=== PATIENT | male | born 1945 | race Caucasian/White ===

== ENCOUNTER 2016-11-10 20:16 | Inpatient (IN) | payer OTHER ==
[~2016-11-10] VITALS: Ht 182.8 cm; Wt 123.6 kg
[2016-11-10] VITALS (10 sets, daily range): BP systolic 102–139; BP diastolic 0–84
--- NOTE | ~2016-11-10 | ST ---
[place], [place] EXERCISE STRESS TEST REPORT [id number] UNIT #: [id number] ROOM: [facility] DOCTOR: LEANN BUTLER MD BIRTHDATE: [birth year] DOS: 11/12/2016 REFERRING PHYSICIAN: Dr. Florentino. INDICATION: Chest pressure and atrial fibrillation. The patient underwent standard protocol Lexiscan stress EKG. The patient's baseline EKG showed normal sinus rhythm, nonspecific ST-T wave changes. The patient's baseline heart rate was 65 with a blood pressure 148/80. The patient's peak heart rate of 98 with a blood pressure 153/78. The patient had no chest pain, no ischemic changes. The patient had rare PVCs, is only arrhythmia. SUMMARY OF FINDINGS: Unremarkable Lexiscan stress EKG. Please see separate report for perfusion scan imaging report. LEANN BUTLER MD CM:STRESS:EXERCISE STRESS TEST REPORT [id number] LEANN BUTLER MD
--- NOTE | ~2016-11-10 | CON ---
[place], [place] REPORT OF CONSULTATION NAME: GANESH SNYDER UNIT #: [id number] ROOM: [facility] DOCTOR: ARTUR ALVARENGAMAURICIO BIRTHDATE: [birth year] DOS: 11/11/2016 REASON FOR CONSULTATION: Atrial fibrillation. CLINICAL HISTORY: The patient is a 71-year-old patient with history of hypertension and dyslipidemia. At present to the Emergency Room for dizziness and palpitations which has been going on for a couple of days. He also felt like he is having some chest discomfort at this time, but it is more like his heart palpitations, no syncope. This has been going on now for several days. Usually, they resolve on its own, but this time, symptoms did not resolve and he came to the Emergency Room and he was found to be tachycardic with heart rates around 190 and given 2 doses of adenosine and his heart rate significantly improved. He was started on intravenous Cardizem and admitted to the hospital and Cardiology was consulted for further recommendations regarding his tachy-arrhythmias. He denied any exertional chest pain or palpitations. No syncope, no fever or chills, no cough, no hemoptysis. No nausea, vomiting, diarrhea. No blurred vision or double vision, no headaches. No musculoskeletal symptoms. No hematuria or dysuria. REVIEW OF SYSTEMS: Review of the 10 systems negative except as mentioned above. PAST MEDICAL HISTORY: 1. Hypertension. 2. Diabetes type 2. 3. Morbid obesity. 4. Sleep apnea. 5. Dyslipidemia. 6. Anxiety. 7. COPD. PAST SURGICAL HISTORY: 1. History of back surgery. 2. History of cardiac catheterization 15 years ago. SOCIAL HISTORY: The patient quit smoking a while ago. Does not drink alcohol, does not use illicit drugs. FAMILY HISTORY: Father from metastatic cancer. Mother had heart disease. ALLERGIES: No known drug allergies. HOME MEDICATIONS: Reviewed. PHYSICAL EXAMINATION: VITAL SIGNS: Blood pressure 138/82, pulse 68, respiratory rate 16. GENERAL: Alert, comfortable, in no acute distress. HEENT: Pupils are round and equal. No jaundice. Tongue was moist and pharynx clear. NECK: Supple, no distended neck veins. No carotid bruits. Thyroid not palpable. [place], [place] REPORT OF CONSULTATION NAME: GANESH SNYDER UNIT #: [id number] ROOM: 519 DOCTOR: MAURICIO SIDDIQUI MD BIRTHDATE: [birth year] CHEST: Symmetrical, nontender. LUNGS: Clear to auscultation bilaterally. HEART: Regular rhythm. No S3. Grade 1/6 systolic murmur at the right sternal border. ABDOMEN: Obese, nontender. Difficult to assess due to morbid obesity. EXTREMITIES: Showed trace edema bilaterally. Distal pulses are palpable. SKIN: Warm and dry. No cyanosis, no clubbing. NEUROLOGIC: The patient is alert, oriented. No focal neurologic deficit. PSYCHIATRIC: No joint tenderness or swelling. RECTAL: Deferred. GENITOURINARY: Deferred. REVIEW OF THE DIAGNOSTIC TESTS: EKG shows tachycardia with right bundle-branch block appears to be atrial fibrillation. His labs and rhythm strips reviewed. IMPRESSION: 1. Paroxysmal atrial fibrillation with rapid ventricular rate, currently in sinus rhythm. 2. Borderline elevation of troponin, possibly due to tachycardia and chronic kidney disease. 3. Atypical chest pain due to tachycardia. 4. Hypertension. 5. Diabetes type 2. 6. Chronic kidney disease. 7. Dyslipidemia. 8. Sleep apnea. 9. Morbid obesity. RECOMMENDATIONS: 1. He denies any chest pain or shortness of breath. He is feeling much better. 2. Discontinue IV Cardizem and put him on p.o. Cardizem. 3. Check 2D echo for LV function and valvular function. 4. Risk and benefits of the anticoagulation discussed and he is agreeable to take Eliquis, which I will start tomorrow based on his echo and stress test findings. 5. Risk factor modification for diet, exercise discussed. 6. Further recommendations based on his hospital course, stress test and 2D echo. [place], [place] REPORT OF CONSULTATION NAME: GANESH SNYDER UNIT #: [id number] ROOM: 519 DOCTOR: MAURICIO SIDDIQUI MD BIRTHDATE: [birth year] MAURICIO SIDDIQUI MD CM:CONSTR:REPORT OF CONSULTATION 1649 12/13/16 1000 interface
--- NOTE | ~2016-11-10 | WRIGHTHP ---
[place], [place] PATIENT HISTORY AND PHYSICAL EXAM [id number] UNIT #: [id number] ROOM: 519 DOCTOR: JACKELINE GOLDSMITH DO BIRTHDATE: [birth year] DOS: 11/11/2016 PRIMARY CARE PHYSICIAN: Dr. Clemens. The patient was seen and evaluated with the resident on 11/11/2016. Please see the resident's note for further details. ASSESSMENT: 1. Atrial fibrillation with a rapid ventricular response. This is now resolved and converted back to sinus rhythm. 2. Paroxysmal atrial fibrillation. This is newly recognized. 3. Mild leukocytosis. 4. Mild elevation of troponin. 5. Near syncope secondary to the atrial fibrillation. 6. Acute renal failure, this is now resolved. 7. Hypertension. 8. Hyperlipidemia. 9. Diabetes mellitus type 2. 10. Chronic obstructive pulmonary disease. 11. Asthma. 12. Obstructive sleep apnea. 13. Ex-smoker, he quit many years ago. 14. Anxiety. 15. Depression. PLAN: The patient will be kept again overnight. We will continue to watch him on the deep fat cook fry. Cardiology has been consulted. They have ordered a stress test to be done tomorrow. JACKELINE GOLDSMITH DO CM:HISPHYS:PATIENT HISTORY AND PHYSICAL EXAMINATION [id number] JACKELINE GOLDSMITH DO 11/11/16 1432 interface
[~2016-11-10 20:16] MED LIST: FLUOXETINE10 MG PO; HUMALOG100 U/ML SC; LANTUS100 U/ML SC; LISINOPRIL-HYDR1 TA1 PO; METFORMIN500 MG PO; SINGULAIR10 MG PO; THEOPHYLLINE PO; VITAMIN D50000 I3 PO
[2016-11-10] MEDS ORDERED: ATORVASTATIN CA40 M1 PO (20:29)
[2016-11-10] MEDS ORDERED: THEOPHYLLINE300 M2 PO (20:30)
[2016-11-10] MEDS ORDERED: PROZAC40 M1 PO (20:31)
[2016-11-10] MEDS ORDERED: TRULICITY0.75 MG/0. SC (20:32)
[2016-11-10 20:40] LABS: BASO # 0.1 10*3/uL (0.0-0.1); BASO % 0.5 % (0.0-1.0); EOS # 0.2 10*3/uL (0.0-0.4); EOS % 1.4 % (1.0-4.0); HEMOGLOBIN 15.1 g/dl (14.0-18.0); IG # 0.1 10*3/uL (0.0-0.1); LYMPH # 3.1 10*3/uL (1.3-4.4); LYMPH % 24.1 % (27.0-41.0); MEAN CELL VOLUME 90.9 fl (80.0-94.0); MEAN CORPUSCULAR HGB 32.7 pg (27.0-31.0); MEAN PLATELET VOLUME 9.9 fl (9.6-12.3); MONO # 1.2 10*3/uL (0.1-1.0); MONO % 9.2 % (3.0-9.0); NEUT # 8.1 10*3/uL (2.3-7.9); NEUT % 64.2 % (47.0-73.0); PLATELET COUNT AUTOMATED 208 10*3/uL (130-400); RED BLOOD COUNT 4.62 10*6/uL (4.50-5.90); WHITE BLOOD COUNT 12.6 10*3/uL (4.8-10.8)
[2016-11-10 20:51] LABS: PROTHROMBIN TIME 11.1 SECONDS (9.0-12.4)
[2016-11-10 20:58] LABS: ALBUMIN 3.2 gm/dl (3.1-4.5); BILIRUBIN, TOTAL 0.5 mg/dl (0.2-1.0); MAGNESIUM 1.3 mg/dL (1.5-2.1); POTASSIUM 4.1 mmol/L (3.5-5.1); TOTAL PROTEIN 6.6 gm/dL (6.4-8.2)
[2016-11-10 21:02] LABS: THEOPHYLLINE 6.2 ug/ml (10-20); TROPONIN I 0.05 ng/ml (<0.045)
[2016-11-11] VITALS (7 sets, daily range): BP systolic 109–154; BP diastolic 50–76
[2016-11-11 00:01] LABS: CKMB 1.4 ng/ml (0.5-3.6)
[2016-11-11 00:05] LABS: TROPONIN I 0.115 ng/ml (<0.045)
[2016-11-11 06:56] LABS: BASO # 0.1 10*3/uL (0.0-0.1); BASO % 0.5 % (0.0-1.0); EOS # 0.3 10*3/uL (0.0-0.4); HEMATOCRIT 40.5 % (42.0-52.0); HEMOGLOBIN 14.4 g/dl (14.0-18.0); IG # 0.1 10*3/uL (0.0-0.1); LYMPH # 3.5 10*3/uL (1.3-4.4); LYMPH % 36.8 % (27.0-41.0); MEAN CELL VOLUME 92.5 fl (80.0-94.0); MEAN CORPUSCULAR HGB 32.9 pg (27.0-31.0); MEAN CORPUSCULAR HGB CONC 35.6 g/dl (33.0-37.0); MEAN PLATELET VOLUME 10.1 fl (9.6-12.3); MONO # 0.8 10*3/uL (0.1-1.0); MONO % 8.6 % (3.0-9.0); NEUT # 4.8 10*3/uL (2.3-7.9); NEUT % 50.4 % (47.0-73.0); PLATELET COUNT AUTOMATED 186 10*3/uL (130-400); RED BLOOD COUNT 4.38 10*6/uL (4.50-5.90); RED CELL DISTRI WIDTH 11.9 % (0-14.5); WHITE BLOOD COUNT 9.5 10*3/uL (4.8-10.8)
[2016-11-11 07:19] LABS: PROTHROMBIN TIME 10.8 SECONDS (9.0-12.4)
[2016-11-11 07:36] LABS: ALBUMIN 3.1 gm/dl (3.1-4.5); BILIRUBIN, TOTAL 0.5 mg/dl (0.2-1.0); BUN 15 mg/dl (7-24); CARBON DIOXIDE 27 mmol/L (21-32); CHLORIDE 108 mmol/L (98-107); CHOLESTEROL 132 mg/dL (<200); EST GLOM FILT AFRICAN AMERICAN > 60 ml/min; GLUCOSE 136 mg/dL (65-99); MAGNESIUM 1.6 mg/dL (1.5-2.1); POTASSIUM 3.7 mmol/L (3.5-5.1); SGOT/AST 11 IU/L (3-35); SGPT/ALT 22 U/L (12-78); SODIUM 143 mmol/L (136-145); TOTAL PROTEIN 6.3 gm/dL (6.4-8.2); TRIGLYCERIDES 148 mg/dl (<150); VLDL CHOLESTEROL 30 mg/dL (6-40)
[2016-11-11 07:40] LABS: HEMOGLOBIN A1c 6.7 % (4.8-5.6)
[2016-11-11 07:43] LABS: ALKALINE PHOSPHATASE 90 U/L (45-117); FREE T4 1.12 ng/dl (0.76-1.46); HDL CHOLESTEROL 36 mg/dl (40-60); LDL CHOLESTEROL 66 mg/dL (9-159); THYROID STIM HORMONE (HS) 0.661 uIU/ml (0.358-4.75)
[2016-11-11 09:26] LABS: FOLIC ACID 16.23 ng/mL (>5.38); VITAMIN D, 25-HYDROXY 28.6 ng/mL (30-100)
[2016-11-12] VITALS: BP 145/60
[2016-11-12 06:07] LABS: BASO # 0.1 10*3/uL (0.0-0.1); BASO % 0.6 % (0.0-1.0); EOS # 0.3 10*3/uL (0.0-0.4); EOS % 3.5 % (1.0-4.0); HEMATOCRIT 41.7 % (42.0-52.0); HEMOGLOBIN 14.8 g/dl (14.0-18.0); IG # 0.1 10*3/uL (0.0-0.1); LYMPH # 3.2 10*3/uL (1.3-4.4); LYMPH % 35.3 % (27.0-41.0); MEAN CELL VOLUME 92.3 fl (80.0-94.0); MEAN CORPUSCULAR HGB 32.7 pg (27.0-31.0); MEAN CORPUSCULAR HGB CONC 35.5 g/dl (33.0-37.0); MEAN PLATELET VOLUME 9.8 fl (9.6-12.3); MONO # 0.8 10*3/uL (0.1-1.0); MONO % 8.5 % (3.0-9.0); NEUT # 4.6 10*3/uL (2.3-7.9); NEUT % 51.3 % (47.0-73.0); PLATELET COUNT AUTOMATED 200 10*3/uL (130-400); RED BLOOD COUNT 4.52 10*6/uL (4.50-5.90); RED CELL DISTRI WIDTH 11.9 % (0-14.5); WHITE BLOOD COUNT 8.9 10*3/uL (4.8-10.8)
[2016-11-12 06:26] LABS: ALBUMIN 3.3 gm/dl (3.1-4.5); ALKALINE PHOSPHATASE 97 U/L (45-117); BILIRUBIN, TOTAL 0.6 mg/dl (0.2-1.0); BUN 11 mg/dl (7-24); CARBON DIOXIDE 29 mmol/L (21-32); CHLORIDE 105 mmol/L (98-107); EST GLOM FILT AFRICAN AMERICAN > 60 ml/min; GLUCOSE 95 mg/dL (65-99); MAGNESIUM 1.8 mg/dL (1.5-2.1); POTASSIUM 4.1 mmol/L (3.5-5.1); SGOT/AST 15 IU/L (3-35); SGPT/ALT 24 U/L (12-78); SODIUM 141 mmol/L (136-145); TOTAL PROTEIN 6.9 gm/dL (6.4-8.2)
[2016-11-12 08:00] VITALS: BP 144/77
[2016-11-12 12:00] VITALS: BP 155/77
[2016-11-12 16:00] VITALS: BP 147/79
[2016-11-12] MEDS ORDERED: FLUTICASON0.05 MG/AC NAS (16:34)
[2016-11-12] MEDS ORDERED: TOPROL XL50 M1 PO (16:34)
[2016-11-12] MEDS ORDERED: ELIQUIS5 M1 PO (16:36)
== END 2016-11-12 17:37 | disposition home or self-care (01) | DRG 308 ==
LOC: ED 20:16 → 5E 21:35 → EDHOLD 21:35 → 5E 22:04
PROVIDERS: Emergency Medicine; Hospitalist; Nurse Practitioner Family
DX: I48.0 Paroxysmal atrial fibrillation (principal); N17.0 Acute kidney failure with tubular necrosis; D72.829 Elevated white blood cell count, unspecified; E11.65 Type 2 diabetes mellitus with hyperglycemia; J44.9 Chronic obstructive pulmonary disease, unspecified; E66.01 Morbid (severe) obesity due to excess calories; E78.5 Hyperlipidemia, unspecified; I12.9 Hypertensive chronic kidney disease with stage 1 through stage 4 chronic kidney disease, or unspecified chronic kidney disease; F41.1 Generalized anxiety disorder; G47.33 Obstructive sleep apnea (adult) (pediatric); N18.9 Chronic kidney disease, unspecified; E11.22 Type 2 diabetes mellitus with diabetic chronic kidney disease; F32.9 Major depressive disorder, single episode, unspecified; Z79.4 Long term (current) use of insulin; Z80.9 Family history of malignant neoplasm, unspecified; Z83.3 Family history of diabetes mellitus; Z82.49 Family history of ischemic heart disease and other diseases of the circulatory system; Z87.891 Personal history of nicotine dependence; Z79.899 Other long term (current) drug therapy; Z68.36 Body mass index [BMI] 36.0-36.9, adult; Z79.84 Long term (current) use of oral hypoglycemic drugs

== ENCOUNTER → 2021-02-07 | Outpatient (CLI) | payer OTHER ==
[~2021-02-07] MED LIST changes: +ATORVASTATIN CA40 M1 PO; +ELIQUIS5 M1 PO; +FLUTICASON0.05 MG/AC NAS; +PROZAC40 M1 PO; +THEOPHYLLINE300 M2 PO; +TOPROL XL50 M1 PO; +TRULICITY0.75 MG/0. SC
== END | disposition home or self-care (01) ==
LOC: COVID19 15:15
PROVIDERS: ATTEND Family Medicine
DX: U07.1 COVID-19 (principal)

== ENCOUNTER 2021-05-29 16:07 | Emergency (ER) | payer OTHER ==
[~2021-05-29] VITALS: Ht 182.8 cm; Wt 119.3 kg
[2021-05-29 20:05] LABS: BASO % 0.2 % (0.0-1.0); EOS # 0.1 10*3/uL (0.0-0.4); EOS % 0.3 % (1.0-4.0); HEMATOCRIT 47.5 % (42.0-52.0); LYMPH % 11.1 % (27.0-41.0); MEAN CELL VOLUME 90.3 fl (80.0-94.0); MEAN CORPUSCULAR HGB 32.1 pg (27.0-31.0); MEAN CORPUSCULAR HGB CONC 35.6 g/dl (33.0-37.0); MEAN PLATELET VOLUME 8.8 fl (9.6-12.3); MONO % 5.7 % (3.0-9.0); NEUT # 14.6 10*3/uL (2.3-7.9); NEUT % 82.2 % (47.0-73.0); PLATELET COUNT AUTOMATED 204 10*3/uL (130-400); RED BLOOD COUNT 5.26 10*6/uL (4.50-5.90); RED CELL DISTRI WIDTH 12.9 % (0-14.5); WHITE BLOOD COUNT 17.8 10*3/uL (4.8-10.8)
[2021-05-29 20:20] LABS: ALBUMIN 3.6 gm/dl (3.1-4.5); ALKALINE PHOSPHATASE 106 U/L (45-117); BUN 11 mg/dl (7-24); CHLORIDE 101 mmol/L (98-107); CREATININE 0.97 mg/dL (0.70-1.30); SGOT/AST 20 IU/L (3-35); SGPT/ALT 31 U/L (12-78); SODIUM 138 mmol/L (136-145)
== END 2021-05-29 22:38 | disposition home or self-care (01) ==
LOC: ED 16:07
PROVIDERS: Nurse Practitioner Family
DX: R07.89 Other chest pain (principal); Z20.822 Contact with and (suspected) exposure to COVID-19; R51.9 Headache, unspecified; Z79.899 Other long term (current) drug therapy; Z87.891 Personal history of nicotine dependence

== ENCOUNTER 2021-08-29 19:15 | Emergency (ER) | payer OTHER ==
[~2021-08-29] VITALS: Ht 182.8 cm; Wt 115.2 kg
[2021-08-29 19:20] VITALS: BP 178/86
[2021-08-29 20:07] LABS: BASO % 0.2 % (0.0-1.0); EOS % 0.1 % (1.0-4.0); HEMATOCRIT 44.2 % (42.0-52.0); LYMPH # 0.8 10*3/uL (1.3-4.4); LYMPH % 5.5 % (27.0-41.0); MEAN CELL VOLUME 89.3 fl (80.0-94.0); MEAN CORPUSCULAR HGB 32.3 pg (27.0-31.0); MEAN CORPUSCULAR HGB CONC 36.2 g/dl (33.0-37.0); MEAN PLATELET VOLUME 9.2 fl (9.6-12.3); MONO # 1.1 10*3/uL (0.1-1.0); MONO % 7.3 % (3.0-9.0); NEUT # 12.4 10*3/uL (2.3-7.9); NEUT % 86.3 % (47.0-73.0); PLATELET COUNT AUTOMATED 242 10*3/uL (130-400); RED BLOOD COUNT 4.95 10*6/uL (4.50-5.90); RED CELL DISTRI WIDTH 12.8 % (0-14.5); WHITE BLOOD COUNT 14.4 10*3/uL (4.8-10.8)
[2021-08-29 20:23] LABS: ALKALINE PHOSPHATASE 245 U/L (45-117); BUN 9 mg/dl (7-24); CHLORIDE 95 mmol/L (98-107); CREATININE 1.11 mg/dL (0.70-1.30); POTASSIUM 4.1 mmol/L (3.5-5.1); SGOT/AST 584 IU/L (3-35); SGPT/ALT 464 U/L (12-78); SODIUM 132 mmol/L (136-145); TOTAL PROTEIN 8.4 gm/dL (6.4-8.2)
[2021-08-29 20:53] LABS: BILIRUBIN 1+ (Negative); BLOOD Negative (Negative); CLARITY Turbid (Clear); COLOR Dark Yellow (Yellow); GLUCOSE 3+ (Negative); KETONE 1+ (Negative); LEUKO ESTERASE Negative (Negative); NITRITE Negative (Negative); PH 7.5 (4.5-8.0); SPECIFIC GRAVITY >= 1.030 (1.001-1.030)
[2021-08-29 21:01] LABS: BACTERIA 4+
[2021-08-29 21:02] LABS: EPITHELIAL CELLS 0-2; WBC 0-2 wbc/hpf (0-5)
[2021-08-30 01:42] LABS: INTERNATIONAL NORM RATIO 1.1 (2.0-3.5)
[2021-08-30 05:12] VITALS: BP 134/74
== END 2021-08-30 05:21 | disposition short-term general hospital (02) ==
LOC: ED 19:15 → EDHOLD 08-30 01:23 → ED 08-30 01:23
PROVIDERS: Emergency Medicine
DX: A41.9 Sepsis, unspecified organism (principal); E87.1 Hypo-osmolality and hyponatremia; E80.6 Other disorders of bilirubin metabolism; D72.829 Elevated white blood cell count, unspecified; R74.01 Elevation of levels of liver transaminase levels; J44.9 Chronic obstructive pulmonary disease, unspecified; E11.9 Type 2 diabetes mellitus without complications; I10 Essential (primary) hypertension; E78.5 Hyperlipidemia, unspecified; E66.9 Obesity, unspecified; Z79.899 Other long term (current) drug therapy; Z98.890 Other specified postprocedural states

== ENCOUNTER → 2023-08-29 | Outpatient (CLI) | payer OTHER | END | disposition home or self-care (01) | LOC: MRI 00:32 | PROVIDERS: ATTEND Psychiatry & Neurology Psychiatry | DX: G31.9 Degenerative disease of nervous system, unspecified (principal); F03.90 Unspecified dementia, unspecified severity, without behavioral disturbance, psychotic disturbance, mood disturbance, and anxiety ==

== ENCOUNTER 2023-11-26 21:43 | Emergency (ER) | payer MEDICARE ==
[~2023-11-26] VITALS: Ht 182.8 cm; Wt 127.0 kg
[2023-11-26] MEDS ORDERED: methylPREDNISolone sod succ 125 MG VIAL IM ONE (23:25)
[2023-11-26] MEDS ORDERED: METHOCARBAMOL 750 MG TAB PO ONE (23:25)
[2023-11-26] MEDS ORDERED: METHOCARBAMOL750 M1 PO (23:44)
[2023-11-26] MEDS ORDERED: PREDNISONE20 M1 PO (23:44)
== END 2023-11-27 00:24 | disposition home or self-care (01) ==
LOC: ED 21:43
DX: S39.012A Strain of muscle, fascia and tendon of lower back, initial encounter (principal); E11.9 Type 2 diabetes mellitus without complications; J44.9 Chronic obstructive pulmonary disease, unspecified; F41.9 Anxiety disorder, unspecified; Z95.5 Presence of coronary angioplasty implant and graft; Z98.890 Other specified postprocedural states; X50.0XXA Overexertion from strenuous movement or load, initial encounter; Y93.89 Activity, other specified; Y92.009 Unspecified place in unspecified non-institutional (private) residence as the place of occurrence of the external cause; Y99.8 Other external cause status

== ENCOUNTER 2024-06-24 16:28 | Emergency (ER) | payer OTHER ==
[~2024-06-24] VITALS: Wt 124.7 kg
[~2024-06-24 16:28] MED LIST changes: +METHOCARBAMOL750 M1 PO; +PREDNISONE20 M1 PO
[2024-06-24] MEDS ORDERED: methylPREDNISolone sod succ 125 MG VIAL IM ONE (18:55)
[2024-06-24] MEDS ORDERED: Acetaminophen/Hydrocodone 5 MG/325 MG TABLET PO ONE (18:55)
[2024-06-24] MEDS ORDERED: HYDROCODONE-AC1 EAC1 PO (21:31)
[2024-06-24] MEDS ORDERED: CYCLOBENZAPRINE5 M3 PO (21:31)
== END 2024-06-24 21:45 | disposition home or self-care (01) ==
LOC: ED 16:28
DX: S39.012A Strain of muscle, fascia and tendon of lower back, initial encounter (principal); I48.91 Unspecified atrial fibrillation; E11.9 Type 2 diabetes mellitus without complications; I10 Essential (primary) hypertension; E78.5 Hyperlipidemia, unspecified; K21.9 Gastro-esophageal reflux disease without esophagitis; Z79.899 Other long term (current) drug therapy; Z79.84 Long term (current) use of oral hypoglycemic drugs; Z79.4 Long term (current) use of insulin; Z98.890 Other specified postprocedural states; Z87.891 Personal history of nicotine dependence; X50.1XXA Overexertion from prolonged static or awkward postures, initial encounter; Y93.89 Activity, other specified; Y92.89 Other specified places as the place of occurrence of the external cause; Y99.8 Other external cause status

== ENCOUNTER → 2024-11-26 | Outpatient (CLI) | payer OTHER ==
[~2024-11-26] MED LIST changes: +CYCLOBENZAPRINE5 M3 PO; +HYDROCODONE-AC1 EAC1 PO
== END | disposition home or self-care (01) ==
LOC: RAD 15:56
PROVIDERS: ATTEND Family Medicine
DX: M19.041 Primary osteoarthritis, right hand (principal); M79.89 Other specified soft tissue disorders; M79.643 Pain in unspecified hand

== ENCOUNTER 2024-12-26 20:44 | Emergency (ER) | payer OTHER ==
[~2024-12-26] VITALS: Ht 182.8 cm; Wt 120.2 kg
[2024-12-26] MEDS ORDERED: METHOCARBAMOL 750 MG TAB PO ONE (21:40)
== END 2024-12-26 23:32 | disposition home or self-care (01) ==
LOC: ED 20:44
DX: S16.1XXA Strain of muscle, fascia and tendon at neck level, initial encounter (principal); R51.9 Headache, unspecified; Z79.899 Other long term (current) drug therapy; Z79.4 Long term (current) use of insulin; Z79.84 Long term (current) use of oral hypoglycemic drugs; Z98.890 Other specified postprocedural states; Z87.891 Personal history of nicotine dependence; X50.1XXA Overexertion from prolonged static or awkward postures, initial encounter; Y93.84 Activity, sleeping; Y92.098 Other place in other non-institutional residence as the place of occurrence of the external cause; Y99.8 Other external cause status

== ENCOUNTER 2025-01-31 21:03 | Emergency (ER) | payer OTHER ==
[~2025-01-31] VITALS: Ht 175.2 cm; Wt 117.5 kg
[2025-01-31] MEDS ORDERED: SODIUM CHLORIDE 0.9% 1,000 ML IV ONE (21:30)
[2025-01-31 22:09] LABS: BASO # 0.0 10*3/uL (0.0-0.1); BASO % 0.5 % (0.0-1.0); EOS # 0.1 10*3/uL (0.0-0.4); EOS % 1.5 % (1.0-4.0); MEAN CELL VOLUME 94.4 fl (80.0-94.0); MEAN CORPUSCULAR HGB 32.5 pg (27.0-31.0); MEAN PLATELET VOLUME 8.7 fl (9.6-12.3); MONO # 1.0 10*3/uL (0.1-1.0); MONO % 12.0 % (3.0-9.0); NEUT # 5.0 10*3/uL (2.3-7.9); NEUT % 59.6 % (47.0-73.0); NUCLEATED RED BLOOD CELL 0.0 % (0.0-0.0); NUCLEATED RED BLOOD CELL 0.0 10*3/uL (0.0-0.0); PLATELET COUNT AUTOMATED 205 10*3/uL (130-400); RED CELL DISTRI WIDTH 12.8 % (0-14.5)
[2025-01-31 22:26] LABS: BUN 12 mg/dl (9-23); SGPT/ALT 16 U/L (5-49)
== END 2025-01-31 23:38 | disposition home or self-care (01) ==
LOC: ED 21:03
DX: F41.9 Anxiety disorder, unspecified (principal); R55 Syncope and collapse; R51.9 Headache, unspecified; I48.91 Unspecified atrial fibrillation; J44.9 Chronic obstructive pulmonary disease, unspecified; E11.9 Type 2 diabetes mellitus without complications; I10 Essential (primary) hypertension; E78.5 Hyperlipidemia, unspecified; E66.9 Obesity, unspecified; Z79.899 Other long term (current) drug therapy; Z79.84 Long term (current) use of oral hypoglycemic drugs; Z79.4 Long term (current) use of insulin; Z68.30 Body mass index [BMI] 30.0-30.9, adult; Z98.890 Other specified postprocedural states; Z87.891 Personal history of nicotine dependence

== ENCOUNTER 2025-02-26 21:46 | Emergency (ER) | payer OTHER ==
[~2025-02-26] VITALS: Ht 182.9 cm; Wt 109.8 kg
[2025-02-26 22:09] LABS: BASO # 0.0 10*3/uL (0.0-0.1); BASO % 0.3 % (0.0-1.0); EOS # 0.2 10*3/uL (0.0-0.4); EOS % 1.4 % (1.0-4.0); MEAN CELL VOLUME 94.7 fl (80.0-94.0); MEAN CORPUSCULAR HGB 32.7 pg (27.0-31.0); MEAN PLATELET VOLUME 8.6 fl (9.6-12.3); MONO # 1.1 10*3/uL (0.1-1.0); MONO % 10.3 % (3.0-9.0); NEUT # 6.3 10*3/uL (2.3-7.9); NEUT % 58.3 % (47.0-73.0); NUCLEATED RED BLOOD CELL 0.0 % (0.0-0.0); NUCLEATED RED BLOOD CELL 0.0 10*3/uL (0.0-0.0); PLATELET COUNT AUTOMATED 272 10*3/uL (130-400); RED CELL DISTRI WIDTH 13.0 % (0-14.5)
[2025-02-26 22:22] LABS: ACT PARTIAL THROMBO TIME 32.6 SECONDS (20.0-32.1)
[2025-02-26 22:30] LABS: BUN 11 mg/dl (9-23)
[2025-02-27] MEDS ORDERED: MAGNESIUM 250 MG TAB PO ONE (00:25)
[2025-02-27] MEDS ORDERED: METHOCARBAMOL 750 MG TAB PO ONE (00:25)
[2025-02-27] MEDS ORDERED: METHOCARBAMOL750 M1 PO (00:30)
[2025-02-27] MEDS ORDERED: PREDNISONE20 M1 PO (00:30)
== END 2025-02-27 00:45 | disposition home or self-care (01) ==
LOC: ED 21:46
PROVIDERS: Internal Medicine
DX: S16.1XXA Strain of muscle, fascia and tendon at neck level, initial encounter (principal); S29.012A Strain of muscle and tendon of back wall of thorax, initial encounter; R07.81 Pleurodynia; Z79.4 Long term (current) use of insulin; Z79.84 Long term (current) use of oral hypoglycemic drugs; Z79.899 Other long term (current) drug therapy; Z87.891 Personal history of nicotine dependence; W18.2XXA Fall in (into) shower or empty bathtub, initial encounter; Y93.89 Activity, other specified; Y92.89 Other specified places as the place of occurrence of the external cause; Y99.8 Other external cause status

== ENCOUNTER 2025-04-10 15:57 | Inpatient (IN) | payer OTHER ==
[~2025-04-10] VITALS: Ht 182.9 cm; Wt 111.6 kg
[~2025-04-10 15:57] MED LIST changes: +ARTHRITIS PAIN150 G1 T; +DIVALPROEX SOD500 M1 PO; +DONEPEZIL HCL10 MG PO; +DRIZALMA SPRINK60 MG PO; +LANTUS100 UNIT/1 SC; +LISINOPRIL40 MG PO; +METFORMIN HCL750 M1 PO; +METOPROLOL SUC100 M1 PO; +PROPRANOLOL HCL20 MG PO; +RISPERIDONE1 MG PO; +TRAZODONE150 MG PO; +VENT7GM INH; +VIBRA-TAB100 MG PO; +VITAMIN D325 MCG PO
[2025-04-10 16:05] VITALS: BP 100/66
[2025-04-10] MEDS ORDERED: SODIUM CHLORIDE 0.9% 500 ML IV ONE (16:10)
[2025-04-10] MEDS ORDERED: DILTIAZEM HCL IN NACL,ISO-OSM 100 ML IV SCH (16:15)
[2025-04-10 16:25] LABS: BASO # 0.0 10*3/uL (0.0-0.1); BASO % 0.4 % (0.0-1.0); EOS # 0.2 10*3/uL (0.0-0.4); EOS % 1.6 % (1.0-4.0); MEAN CELL VOLUME 97.2 fl (80.0-94.0); MEAN CORPUSCULAR HGB 32.9 pg (27.0-31.0); MEAN PLATELET VOLUME 9.2 fl (9.6-12.3); MONO # 1.0 10*3/uL (0.1-1.0); MONO % 9.1 % (3.0-9.0); NEUT # 6.8 10*3/uL (2.3-7.9); NEUT % 64.7 % (47.0-73.0); NUCLEATED RED BLOOD CELL 0.0 % (0.0-0.0); NUCLEATED RED BLOOD CELL 0.0 10*3/uL (0.0-0.0); PLATELET COUNT AUTOMATED 301 10*3/uL (130-400); RED CELL DISTRI WIDTH 13.2 % (0-14.5)
[2025-04-10 16:37] VITALS: BP 123/72
[2025-04-10 16:52] LABS: CPK 33 U/L (34-171)
[2025-04-10 17:07] LABS: BUN 24 mg/dl (9-23)
[2025-04-10] MEDS ORDERED: MAGNESIUM SULFATE 50 ML IV ONE (17:20)
[2025-04-10 18:41] VITALS: BP 130/68
[2025-04-10] MEDS ORDERED: BISACODYL 5 MG TAB PO PRN (18:45)
[2025-04-10] MEDS ORDERED: ACETAMINOPHEN 325 MG TAB PO PRN (18:45)
[2025-04-10] MEDS ORDERED: BISACODYL 10 MG SUPP R PRN (18:45)
[2025-04-10] MEDS ORDERED: Acetaminophen/Hydrocodone 5 MG/325 MG TABLET PO PRN (18:45)
[2025-04-10] MEDS ORDERED: ACETAMINOPHEN 650 MG SUPP R PRN (18:45)
[2025-04-10] MEDS ORDERED: Ondansetron Hydrochloride 4 MG/2 ML VIAL IV PRN (18:45)
[2025-04-10] MEDS ORDERED: DEXTROSE 50% 25 GM/50 ML VIAL IV PRN (18:50)
[2025-04-10 19:04] LABS: BILIRUBIN Negative (Negative); BLOOD Negative (Negative); CLARITY Clear (Clear); COLOR Yellow (Yellow); KETONE Trace (Negative); LEUKO ESTERASE Negative (Negative); NITRITE Negative (Negative); PH 5.0 (4.5-8.0); SPECIFIC GRAVITY 1.020 (1.001-1.030); UROBILINOGEN 1.0 E.U./dl (0.0-1.0)
[2025-04-10 19:10] LABS: WBC 0-2 wbc/hpf (0-5)
[2025-04-10 19:11] LABS: BACTERIA TRACE; EPITHELIAL CELLS 0-2
[2025-04-10] MEDS ORDERED: FUROSEMIDE 40 MG/4 ML VIAL IV ONE (20:25)
[2025-04-10] MEDS ORDERED: ATIVAN0.5 MG PO (20:48)
[2025-04-10] MEDS ORDERED: LORazepam 0.5 MG TAB PO ONE (20:50)
[2025-04-10] MEDS ORDERED: INSULIN LISPRO 1 UNIT/0.01 ML SQ SCH (22:00)
[2025-04-11 00:30] VITALS: BP 129/60; BP 129/69
[2025-04-11 06:24] LABS: BASO # 0.1 10*3/uL (0.0-0.1); BASO % 0.6 % (0.0-1.0); EOS # 0.3 10*3/uL (0.0-0.4); EOS % 2.2 % (1.0-4.0); MEAN CELL VOLUME 94.9 fl (80.0-94.0); MEAN CORPUSCULAR HGB 32.6 pg (27.0-31.0); MEAN PLATELET VOLUME 9.2 fl (9.6-12.3); MONO # 1.2 10*3/uL (0.1-1.0); MONO % 9.8 % (3.0-9.0); NEUT # 6.5 10*3/uL (2.3-7.9); NEUT % 55.4 % (47.0-73.0); NUCLEATED RED BLOOD CELL 0.0 % (0.0-0.0); NUCLEATED RED BLOOD CELL 0.0 10*3/uL (0.0-0.0); PLATELET COUNT AUTOMATED 355 10*3/uL (130-400); RED CELL DISTRI WIDTH 13.1 % (0-14.5)
[2025-04-11 06:29] LABS: SGPT/ALT 49 U/L (5-49)
[2025-04-11 06:41] LABS: BUN 14 mg/dl (9-23)
[2025-04-11 08:00] VITALS: BP 130/91
[2025-04-11] MEDS ORDERED: DIGOXIN 125 MCG TAB PO ONE (09:00)
[2025-04-11] MEDS ORDERED: MAGNESIUM SULFATE 50 ML IV ONE (09:40)
[2025-04-11] MEDS ORDERED: POTASSIUM CHLORIDE 20 MEQ TAB PO ONE ×2 (09:40→11:45)
[2025-04-11] MEDS ORDERED: APIXABAN 5 MG TAB PO SCH (10:00)
[2025-04-11 12:00] VITALS: BP 137/68
[2025-04-11] MEDS ORDERED: DIGOXIN 125 MCG TAB PO SCH (15:00)
[2025-04-11 16:00] VITALS: BP 132/73
[2025-04-11 20:00] VITALS: BP 134/51
[2025-04-11] MEDS ORDERED: LORazepam 0.5 MG TAB PO PRN (21:20)
[2025-04-11 22:00] VITALS: BP 142/66
[2025-04-11] MEDS ORDERED: Insulin Glargine, Recombinan 1 UNIT/0.01 ML SC SCH (22:00)
[2025-04-11] MEDS ORDERED: risperiDONE 1 MG TAB PO SCH (22:00)
[2025-04-11] MEDS ORDERED: DIVALPROEX ER 250 MG TAB PO SCH (22:00)
[2025-04-12] VITALS (11 sets, daily range): BP systolic 106–153; BP diastolic 49–73
[2025-04-12] MEDS ORDERED: SODIUM CHLORIDE 0.9% 1,000 ML IV ONE (00:05)
[2025-04-12 01:13] LABS: BUN 15 mg/dl (9-23)
[2025-04-12] MEDS ORDERED: MAGNESIUM SULFATE 100 ML IV ONE (01:45)
[2025-04-12] MEDS ORDERED: FLUTICASONE PROPIONATE Nasal 16 Gm spray NAS SCH (10:00)
[2025-04-12] MEDS ORDERED: DONEPEZIL 10 MG TAB PO SCH (10:00)
[2025-04-12] MEDS ORDERED: Vitamin D 1,000 IU TAB (25 MCG) PO SCH (10:00)
[2025-04-12] MEDS ORDERED: Menthol/Zinc Oxide 4 GM THIN T PRN (11:20)
[2025-04-12] MEDS ORDERED: FOAM BANDAGE 1 EACH BANDAGE T ONE (12:23)
[2025-04-12] MEDS ORDERED: HEEL PROTECTOR DEVICE ONE (12:24)
[2025-04-12] MEDS ORDERED: CHAIR CUSHION DEVICE ONE (12:24)
[2025-04-12] MEDS ORDERED: DIGOXIN 125 MCG TAB PO SCH (14:00)
[2025-04-12] MEDS ORDERED: FOAM BANDAGE HEEL T ONE (15:20)
[2025-04-12] MEDS ORDERED: ATORVASTATIN CALCIUM 40 MG TABLET PO SCH (18:00)
[2025-04-12] MEDS ORDERED: Menthol/Zinc Oxide 4 GM THIN T SCH (22:00)
[2025-04-13] VITALS (11 sets, daily range): BP systolic 103–137; BP diastolic 45–65
[2025-04-13 06:09] LABS: BASO # 0.0 10*3/uL (0.0-0.1); BASO % 0.5 % (0.0-1.0); EOS # 0.3 10*3/uL (0.0-0.4); EOS % 3.3 % (1.0-4.0); MEAN CELL VOLUME 97.3 fl (80.0-94.0); MEAN CORPUSCULAR HGB 32.1 pg (27.0-31.0); MEAN PLATELET VOLUME 8.9 fl (9.6-12.3); MONO # 0.9 10*3/uL (0.1-1.0); MONO % 10.3 % (3.0-9.0); NEUT # 4.8 10*3/uL (2.3-7.9); NEUT % 58.7 % (47.0-73.0); NUCLEATED RED BLOOD CELL 0.0 % (0.0-0.0); NUCLEATED RED BLOOD CELL 0.0 10*3/uL (0.0-0.0); PLATELET COUNT AUTOMATED 311 10*3/uL (130-400); RED CELL DISTRI WIDTH 13.1 % (0-14.5)
[2025-04-13 06:32] LABS: BUN 16 mg/dl (9-23)
[2025-04-13] MEDS ORDERED: SODIUM CHLORIDE 0.9% 10 ML SYR IV SCH (10:35)
[2025-04-13] MEDS ORDERED: SODIUM CHLORIDE 0.9% 500 ML IV SCH (10:35)
[2025-04-13 11:11] LABS: BASO # 0.0 10*3/uL (0.0-0.1); BASO % 0.4 % (0.0-1.0); EOS # 0.2 10*3/uL (0.0-0.4); EOS % 2.2 % (1.0-4.0); MEAN CELL VOLUME 96.9 fl (80.0-94.0); MEAN CORPUSCULAR HGB 32.4 pg (27.0-31.0); MEAN PLATELET VOLUME 9.1 fl (9.6-12.3); MONO # 0.9 10*3/uL (0.1-1.0); MONO % 9.3 % (3.0-9.0); NEUT # 6.2 10*3/uL (2.3-7.9); NEUT % 66.7 % (47.0-73.0); NUCLEATED RED BLOOD CELL 0.0 % (0.0-0.0); NUCLEATED RED BLOOD CELL 0.0 10*3/uL (0.0-0.0); PLATELET COUNT AUTOMATED 342 10*3/uL (130-400); RED CELL DISTRI WIDTH 13.2 % (0-14.5)
[2025-04-13 11:22] LABS: ACT PARTIAL THROMBO TIME 30.2 SECONDS (20.0-32.1)
[2025-04-13] MEDS ORDERED: RISPERIDONE1 MG PO (16:19)
[2025-04-13] MEDS ORDERED: GLIPIZIDE5 M1 PO (16:25)
[2025-04-13] MEDS ORDERED: NURTEC ODT75 MG PO (16:26)
[2025-04-13] MEDS ORDERED: RIZATRIPTAN5 MG PO (16:28)
[2025-04-14] VITALS (9 sets, daily range): BP systolic 110–138; BP diastolic 49–73
[2025-04-14 06:35] LABS: MEAN CORPUSCULAR HGB 32.7 pg (27.0-31.0); MEAN PLATELET VOLUME 9.4 fl (9.6-12.3); NUCLEATED RED BLOOD CELL 0.0 % (0.0-0.0); NUCLEATED RED BLOOD CELL 0.0 10*3/uL (0.0-0.0); PLATELET COUNT AUTOMATED 364 10*3/uL (130-400); RED CELL DISTRI WIDTH 13.1 % (0-14.5)
[2025-04-14 06:37] LABS: MANUAL DIFF REFLEX YES; MEAN CELL VOLUME 92.1 fl (80.0-94.0)
[2025-04-14 06:38] LABS: BUN 17 mg/dl (9-23)
[2025-04-14 07:42] LABS: PLATELET SUFFICIENCY NORMAL (NORMAL)
[2025-04-14 19:46] LABS: BUN 16 mg/dl (9-23)
[2025-04-15] VITALS: BP 119/65
[2025-04-15 06:38] LABS: BASO # 0.1 10*3/uL (0.0-0.1); BASO % 0.7 % (0.0-1.0); EOS # 0.3 10*3/uL (0.0-0.4); EOS % 3.5 % (1.0-4.0); MEAN CORPUSCULAR HGB 32.6 pg (27.0-31.0); MEAN PLATELET VOLUME 9.1 fl (9.6-12.3); MONO # 0.9 10*3/uL (0.1-1.0); MONO % 10.7 % (3.0-9.0); NEUT # 4.4 10*3/uL (2.3-7.9); NEUT % 55.1 % (47.0-73.0); NUCLEATED RED BLOOD CELL 0.0 % (0.0-0.0); NUCLEATED RED BLOOD CELL 0.0 10*3/uL (0.0-0.0); PLATELET COUNT AUTOMATED 379 10*3/uL (130-400); RED CELL DISTRI WIDTH 13.2 % (0-14.5)
[2025-04-15 06:39] LABS: MEAN CELL VOLUME 95.6 fl (80.0-94.0)
[2025-04-15 08:00] VITALS: BP 169/76
[2025-04-15] MEDS ORDERED: DILTIAZEM HCL IN NACL,ISO-OSM 100 ML IV SCH (11:30)
[2025-04-15 12:00] VITALS: BP 149/90
[2025-04-15 16:00] VITALS: BP 163/78
[2025-04-15 20:00] VITALS: BP 151/80
[2025-04-16] VITALS (7 sets, daily range): BP systolic 120–154; BP diastolic 55–86
[2025-04-16 06:34] LABS: BASO # 0.1 10*3/uL (0.0-0.1); BASO % 0.5 % (0.0-1.0); EOS # 0.2 10*3/uL (0.0-0.4); EOS % 2.0 % (1.0-4.0); MEAN CELL VOLUME 93.2 fl (80.0-94.0); MEAN CORPUSCULAR HGB 32.1 pg (27.0-31.0); MEAN PLATELET VOLUME 8.9 fl (9.6-12.3); MONO # 1.1 10*3/uL (0.1-1.0); MONO % 10.7 % (3.0-9.0); NEUT # 5.9 10*3/uL (2.3-7.9); NEUT % 56.8 % (47.0-73.0); NUCLEATED RED BLOOD CELL 0.0 % (0.0-0.0); NUCLEATED RED BLOOD CELL 0.0 10*3/uL (0.0-0.0); PLATELET COUNT AUTOMATED 373 10*3/uL (130-400); RED CELL DISTRI WIDTH 13.1 % (0-14.5)
[2025-04-16 07:09] LABS: BUN 9 mg/dl (9-23)
[2025-04-17] VITALS: BP 123/49
[2025-04-17 05:00] LABS: BUN 16 mg/dl (9-23)
[2025-04-17 06:05] LABS: MEAN CELL VOLUME 95.3 fl (80.0-94.0); MEAN CORPUSCULAR HGB 32.4 pg (27.0-31.0); MEAN PLATELET VOLUME 9.3 fl (9.6-12.3); NUCLEATED RED BLOOD CELL 0.0 % (0.0-0.0); NUCLEATED RED BLOOD CELL 0.0 10*3/uL (0.0-0.0); PLATELET COUNT AUTOMATED 385 10*3/uL (130-400); RED CELL DISTRI WIDTH 13.6 % (0-14.5)
[2025-04-17 06:06] LABS: MANUAL DIFF REFLEX YES
[2025-04-17 07:06] LABS: PLATELET SUFFICIENCY NORMAL (NORMAL)
[2025-04-17 08:00] VITALS: BP 153/98
[2025-04-17 12:00] VITALS: BP 120/59
[2025-04-17] MEDS ORDERED: DIGOXIN125 MCG PO (13:25)
[2025-04-17] MEDS ORDERED: METOPROLOL TART50 M1 PO (13:25)
== END 2025-04-17 14:58 | DRG 309 ==
LOC: ED 15:57 → EDHOLD 18:26 → 5E 18:26 → 4E 04-14 14:04
PROVIDERS: Emergency Medicine; Internal Medicine; Nurse Practitioner Family; Student in an Organized Health Care Education/Training Program; ADMIT Internal Medicine; ATTEND Internal Medicine
PROC: 5A09357 Assistance with Respiratory Ventilation, Less than 24 Consecutive Hours, Continuous Positive Airway Pressure (ICD-10-PCS; principal; 2025-04-12)
PROC: 5A09357 Assistance with Respiratory Ventilation, Less than 24 Consecutive Hours, Continuous Positive Airway Pressure (ICD-10-PCS; 2025-04-13)
PROC: 5A09357 Assistance with Respiratory Ventilation, Less than 24 Consecutive Hours, Continuous Positive Airway Pressure (ICD-10-PCS; 2025-04-14)
DX: I48.91 Unspecified atrial fibrillation (principal); E87.1 Hypo-osmolality and hyponatremia; R65.10 Systemic inflammatory response syndrome (SIRS) of non-infectious origin without acute organ dysfunction; I10 Essential (primary) hypertension; E83.42 Hypomagnesemia; G89.29 Other chronic pain; M54.9 Dorsalgia, unspecified; M54.2 Cervicalgia; J44.9 Chronic obstructive pulmonary disease, unspecified; F41.1 Generalized anxiety disorder; E66.9 Obesity, unspecified; D64.9 Anemia, unspecified; E78.2 Mixed hyperlipidemia; F32.A Depression, unspecified; R55 Syncope and collapse; G47.33 Obstructive sleep apnea (adult) (pediatric); E11.65 Type 2 diabetes mellitus with hyperglycemia; Z79.899 Other long term (current) drug therapy; Z79.01 Long term (current) use of anticoagulants; Z79.2 Long term (current) use of antibiotics; Z79.4 Long term (current) use of insulin; Z90.49 Acquired absence of other specified parts of digestive tract; Z87.891 Personal history of nicotine dependence; Z82.49 Family history of ischemic heart disease and other diseases of the circulatory system; Z83.3 Family history of diabetes mellitus; Z80.8 Family history of malignant neoplasm of other organs or systems; Z68.34 Body mass index [BMI] 34.0-34.9, adult